=== PATIENT | female | born 1955 | race Caucasian/White ===

== ENCOUNTER → 2017-02-28 | Outpatient (CLI) | payer BC ==
[~2017-02-28] MED LIST: AMLO-110 PO; ATOR10TA88 PO; CHOL200010 PO; HYDR25TA4 PO; LEVO137T3 PO; LEVO150T PO
--- NOTE | 2017-02-28 09:20 | DIAGNOSTIC IMAGING REPORT ---
CHEST 2 VIEWS ROUTINE HISTORY: R05 Chronic cough [id number] COMPARISON: None. FINDINGS: The lungs are clear. Cardiac silhouette is normal in size. No pleural effusions. No pneumothorax. IMPRESSION: No acute process. Electronically signed by: Josse Lynch M.D. 02/28/2017 9:19 AM Dictated Date/Time: 02/28/2017 9:15 AM
== END | disposition home or self-care (01) ==
LOC: C.RAD1850 08:58
PROVIDERS: ATTEND Internal Medicine
DX: R05 Cough (principal)